=== PATIENT | female | born 1980 | race Caucasian/White ===

== ENCOUNTER → 2022-07-15 | Outpatient (CLI) | payer BC, OTHER, SELFPAY ==
--- NOTE | 2022-07-15 08:30 | PET_ITS ---
EXAMINATION: FDG PET/CT ? INDICATIONS: 41-year-old female with a history of apparent head and neck carcinoma, presenting for initial staging examination. ? COMPARISON EXAMINATION: None available. ? INDEX LESION SIZE SUV INTERPRETATION Left pharyngeal mucosal space, tongue base 15.6 mm 7.9 Fulfills quantitative criteria for viable neoplasm ? Left lateral neck, level IIA 20.5 mm 7.1 Fulfills quantitative criteria for viable neoplasm ? Abdominal retroperitoneum 12.6 mm 3.7 Fulfills quantitative criteria for viable neoplasm ? Right posterior ilium, first sacral segment, left posterior chest wall-rib ? 3.7 max Quantitative criteria for viable neoplasm are fulfilled ? Lower pelvis-uterus 18.6 mm, largest 4.3 max May warrant further investigation with pelvic ultrasound ? TECHNIQUE: Following the intravenous administration of 11.33 mCi of F-18 deoxyglucose via the left hand, multiplanar image acquisitions of the neck, chest, abdomen and pelvis to the level of the midthigh, obtained at one-hour post radiopharmaceutical administration contemporaneously interpreted reveal: ? SERUM GLUCOSE LEVEL:? 99 mg/dL? HEIGHT:?? 65 inches WEIGHT:?? 230 pounds ? FINDINGS: ? HEAD/NECK:? Asymmetric increased tracer uptake is noted in the left pharyngeal mucosal space-tongue base. The calculated standard uptake value is 7.9. Facilitated FDG uptake is noted in the left lateral neck involving level IIA, generating a calculated standard uptake value of 7.1. The maximum axial diameter of the metabolic, morphologic abnormality is 20.5 mm. ? The visualized portion of the cerebral cortical-subcortical structures demonstrate symmetric and preserved glucose metabolism. ? CHEST:? There is no quantitative scintigraphic evidence of abnormal increased glucose metabolism within the context of the bilateral hemithorax pulmonary parenchyma, right and left hemithorax at the pleural interface, mediastinal structures, and left-right thoracic perihilum. ? CT of the chest demonstrates the following anatomic characteristics: Bilateral subcentimeter axillary soft tissue densities are nonglucose avid. No parenchymal densities-nodules are manifest in the bilateral hemithorax with quantitatively significant increased radiopharmaceutical concentration. Subcentimeter mediastinal soft tissue densities demonstrate no evidence of increased tracer uptake. ? ABDOMEN/PELVIS:? Facilitated uptake is noted in the lower abdominal retroperitoneum in the region of the left lateral aortic and inferior mesenteric lymph node basins. The calculated maximum standard uptake value is 3.7. The largest corresponding soft tissue density demonstrates a maximum axial diameter of 12.6 mm. Normal physiologic distribution of the radiopharmaceutical is identified in the hepatic (3.1) and splenic parenchyma, both renal units, urinary bladder, and visualized intestinal tract. There is increased radiopharmaceutical concentration manifest in the lower pelvis in two separate locations. The calculated standard uptake value is 4.3. The maximum axial diameter of the largest metabolic abnormality is 18.6 mm. ? CT of the abdomen and pelvis is remarkable for the following: Calcification is defined in the left renal kidney. Bilateral inguinal soft tissue densities demonstrate no evidence of increased tracer uptake. Bilateral fat-containing inguinal hernias are noted. Right and left inguinal soft tissue densities are nonglucose avid. ? SKELETAL:? Facilitated FDG uptake is noted in the region of the right posterior ilium and first sacral segment, and the left upper posterior chest wall-rib. The calculated standard uptake value is 3.7. ? PET/PET/CT Tumor Base -Thigh Init IMPRESSION: 1. ABNORMAL EXAMINATION INDICATIVE OF MALIGNANT-VIABLE NEOPLASM. 2. Increased radiopharmaceutical concentration noted in the left pharyngeal mucosal space-tongue base fulfills quantitative criteria for malignant transformation. 3. Augmented glucose metabolism noted in the left lateral neck involving level IIA fulfills quantitative criteria for viable neoplasia. 4. Abdominal retroperitoneal hypermetabolic foci may warrant histopathologic investigation secondary to the quantitative degree of uptake. 5. Facilitated tracer concentration defined in the uterus in two separate locations likely represents uterine fibroid formation. Correlation with pelvic ultrasound may be of benefit for further evaluation. 6. Enhanced FDG uptake noted in the right posterior ilium, first sacral segment, and left upper posterior chest wall-rib fulfill quantitative criteria for viable neoplasm with single-point technique. Dedicated plain film radiography may be of benefit for further evaluation. Electronic Signature Puneet Trivedi D.O. Accurate Quantification of SUVs for this report are calculated using the exclusive [employer]. ([place] Patent No. [id number] 983 B2 [phone] [place] patent [id number] [phone] [id number]). Standardization and correction of the FDG SUV metric via [employer] technology allow for vendor non-specific objective quantitative examination comparison and optimization of the sensitivity and specificity of the FDG PET-CT examination. . Electronically Signed: Puneet Trivedi, at 11:36 EDT ,
== END | disposition home or self-care (01) ==
PROVIDERS: Referring Provider Otolaryngology Otolaryngic Allergy; Visit Provider Otolaryngology Otolaryngic Allergy
DX: C77.0 Secondary and unspecified malignant neoplasm of lymph nodes of head, face and neck (principal)
CPT/HCPCS: 78815; A9552